=== PATIENT | female | born 1975 | race Caucasian/White ===

== ENCOUNTER 2016-05-10 12:23 | Emergency (ER) | payer BC ==
[~2016-05-10 12:23] MED LIST: HYDR-2666 PO; LISI10TA2 PO; RANI300T3 PO
[2016-05-10 13:30] VITALS: BP 128/77
[2016-05-10] MEDS ORDERED: HYDROCODONE/CHLORPHEN POLIS 5 ML SUS.ER.12H. PO STA (13:53)
[2016-05-10] MEDS ORDERED: DIAZEPAM 5 MG TABLET PO ONE (14:00)
[2016-05-10] MEDS ORDERED: IPRATRPIUM/ALBUTEROL 0.5/2.5MG 3 ML NEBU. NEB ONE (14:00)
[2016-05-10] MEDS ORDERED: PREDNISONE 20 MG TABLET PO ONE (14:00)
--- NOTE | 2016-05-10 14:54 | RAD ---
2 view CXR: Clinical indications: Cough for 3 months. Right-sided rib pain. Comparison: September 24, 2011 Findings: Small granuloma of the left midlung zone is stable. No acute lung infiltrate or pleural effusion or pulmonary edema or lung mass or pneumothorax is seen. The heart size is at the upper limits of normal and is stable. The pulmonary vasculature, mediastinum and both jordy are unremarkable. The osseous structures appear intact. Impression: No acute radiographic abnormality is seen.
[2016-05-10] MEDS ORDERED: PRED50TA PO (15:46)
[2016-05-10] MEDS ORDERED: PROAIR RESPICL90 MCG IH (15:46)
[2016-05-10] MEDS ORDERED: AMOX1TAB61 PO (15:46)
[2016-05-10] MEDS ORDERED: HYDR15SO4 PO (15:46)
[2016-05-10] MEDS ORDERED: BENZ100C PO (15:46)
[2016-05-10] MEDS ORDERED: DIAZ5TAB PO (15:46)
--- NOTE | 2016-05-10 15:47 | PHYS DOC ---
Past Medical History Past Medical History: Hypertension Additional Past Medical Histor: hemorrhoids, low back pain Past Surgical History: Cholecystectomy Additional Information: 2 ppd Alcohol Use: Occasionally Drug Use: None Adult General Chief Complaint Chief Complaint: RIB PAIN HPI HPI Patient is a 40 year old female with history of hypertension who presents today with a productive cough nasal congestion, for the last 2 months. Patient states she believes she has a sinus infection. Patient states she has been coughing so hard she believes she pulled a muscle on her right lower rib region. Patient denies any chest pain or shortness of breath. She states she is a smoker. Denies any fever. She has tried muscle relaxers and anti- inflammatories with no relief for her pain. Review of Systems Review of Systems Constitutional: Denies fever or chills [] Eyes: Denies change in visual acuity, redness, or eye pain [] HENT: nasal congestion Respiratory: cough and right lower rib pain Cardiovascular: see HPI GI: Denies abdominal pain, nausea, vomiting, bloody stools or diarrhea [] : Denies dysuria or hematuria [] Musculoskeletal: Denies back pain or joint pain [] Integument: Denies rash or skin lesions [] Neurologic: Denies headache, focal weakness or sensory changes [] Endocrine: Denies polyuria or polydipsia [] Current Medications Current Medications Current Medications Medications (Trade) Dose Ordered Sig/Crystal Start Time Stop Time Status Last Admin Dose Admin Albuterol/ Ipratropium (Duoneb) 3 ml 1X ONCE 05/10/16 14:00 05/10/16 14:01 DC 05/10/16 14:21 3 ML Chlorphenir/ Hydrocodone Polistirex (Tussionex) 5 ml 1X STAT 05/10/16 13:53 05/10/16 14:01 DC 05/10/16 14:19 5 ML Diazepam (Valium) 5 mg 1X ONCE 05/10/16 14:00 05/10/16 14:01 DC 05/10/16 14:19 5 MG Prednisone (Prednisone) 60 mg 1X ONCE 05/10/16 14:00 05/10/16 14:01 DC 05/10/16 14:19 60 MG Allergies Allergies Allergies Coded Allergies Type Severity Reaction Last Updated Verified No Known Drug Allergies 01/30/14 No Physical Exam Physical Exam Constitutional: Well developed, well nourished, no acute distress, non-toxic appearance. [] HENT: Normocephalic, atraumatic, bilateral external ears normal, oropharynx moist, no oral exudates, nose normal. [] Eyes: PERRLA, EOMI, conjunctiva normal, no discharge. [] Neck: Normal range of motion, no tenderness, supple, no stridor. [] Cardiovascular:Heart rate regular rhythm, no murmur [] Lungs & Thorax: Bilateral breath sounds clear to auscultation, mild tenderness on palpation of posterior lower rib approximately ribs 9 through 11. Abdomen: Bowel sounds normal, soft, no tenderness, no masses, no pulsatile masses. [] Skin: Warm, dry, no erythema, no rash. [] Back: No tenderness, no CVA tenderness. [] Extremities: No tenderness, no cyanosis, no clubbing, ROM intact, no edema. [] Neurologic: Alert and oriented X 3, normal motor function, normal sensory function, no focal deficits noted. [] Psychologic: Affect normal, judgement normal, mood normal. [] Current Patient Data Vital Signs Vital Signs Date Time Temp Pulse Resp B/P Pulse Ox O2 Delivery O2 Flow Rate FiO2 05/10/16 14:21 Room Air 05/10/16 14:19 20 05/10/16 13:30 98.4 78 95 98.4 EKG EKG [] Radiology/Procedures Radiology/Procedures [] Course & Med Decision Making Course & Med Decision Making Pertinent Labs and Imaging studies reviewed. (See chart for details) Patient is in the ED with muscle strain from coughing. She is also complaining of a cough for the last 2 months as well as a sinus infection. She has tried wetk-ldo-fdonswt medicines with no relief. Chest x-ray interpreted by radiologist as negative for any acute findings. She was discharged with instructions to consider smoking cessation. Discharged with albuterol inhaler, prednisone for 4 more days, she was given first dose in the Ed, Lortab, Tessalon Perles, and Augmentin for 10 days. Instructed to follow-up with her own doctor in 1-2 weeks, instructed to return to the ED if symptoms worsen., Dragon Disclaimer Dragon Disclaimer This electronic medical record was generated, in whole or in part, using a voice recognition dictation system. Departure Departure Impression: Primary Impression: Acute bronchitis Additional Impressions: Acute sinusitis Smoking addiction Disposition: 01 HOME, SELF-CARE Condition: STABLE Referrals: ARNOLDO LIANG MD (PCP) Follow-up with your own doctor in one week Patient Instructions: Acute Bronchitis, Sinusitis, Smoking Cessation Additional Instructions: You were seen for acute bronchitis. You also were seen for muscle strain, and a sinus infection. Ensure you complete your antibiotics. Consider smoking cessation. Use the the prescribed medications as ordered. Come back to the emergency room any time if symptoms worsen. Scripts Prednisone 50 Mg Tablet1 Tab PO DAILY #4 TAB Prov:ZACHARIAH POWELL APRN 05/10/16 Amoxicillin/Potassium Clav (Augmentin 875-125 Tablet)1 Each Tablet1 Tab PO BID # 20 TAB Prov:ZACHARIAH POWELL APRN 05/10/16 Albuterol Sulfate (Proair Respiclick)90 Mcg Aer.pow.ba1 Puff IH PRN Q6HRS PRN SHORTNESS OF BREATH #1 INHALER Prov:ZACHARIAH POWELL APRN 05/10/16 Diazepam (Valium)5 Mg Tablet5 Mg PO TID #10 TAB Prov:ZACHARIAH POWELL APRN 05/10/16 Benzonatate (Tessalon Perle)100 Mg Capsule1 Cap PO TID #30 CAP Prov:ZACHARIAH POWELL APRN 05/10/16 Hydrocodone Bit/Acetaminophen (Hydrocodone-Apap 7.5-325/15 Soln )15 Ml Cwylbhbt57 Ml PO PRN Q6HRS PRN PAIN #120 ML Ref 0 Prov:ZACHARIAH POWELL APRN 05/10/16 Problem Qualifiers Primary Impression: Acute bronchitis Bronchitis organism: unspecified organism Qualified Code: J20.9 - Acute bronchitis, unspecified Additional Impressions: Acute sinusitis Sinusitis location: maxillary Recurrence: non-recurrent Qualified Code: J01.00 - Acute maxillary sinusitis, unspecified ZACHARIAH POWELL APRN May 10, 2016 15:47
[2016-05-10] MEDS ORDERED: FLUC150T PO (15:56)
== END 2016-05-10 16:00 | disposition home or self-care (01) ==
LOC: ER 12:23
DX: J20.9 Acute bronchitis, unspecified (principal); J01.00 Acute maxillary sinusitis, unspecified; F17.200 Nicotine dependence, unspecified, uncomplicated; I10 Essential (primary) hypertension
CPT/HCPCS: 71020; 94250; 94640; 99284; J7512; J7620

== ENCOUNTER 2017-01-02 11:47 | Emergency (ER) | payer BC ==
[~2017-01-02] VITALS: Ht 165.1 cm; Wt 131.5 kg
[~2017-01-02 11:47] MED LIST changes: +AMOX1TAB61 PO; +BENZ100C PO; +DIAZ5TAB PO; +FLUC150T PO; -HYDR-2666 PO; +HYDR-2758 PO; +HYDR15SO4 PO; +PRED50TA PO; +PROAIR RESPICL90 MCG IH
[2017-01-02 12:16] VITALS: BP 145/87
[2017-01-02] MEDS ORDERED: ALBUTEROL SULFATE 2.5 MG/3 ML NEBU. NEB ONE (12:30)
[2017-01-02] MEDS ORDERED: predniSONE 10 MG TABLET PO ONE (12:30)
--- NOTE | 2017-01-02 12:35 | PHYS DOC ---
Past Medical History Past Medical History: Hypertension Additional Past Medical Histor: hemorrhoids, low back pain Past Surgical History: Cholecystectomy Alcohol Use: Occasionally Drug Use: None Adult General Chief Complaint Chief Complaint: COUGH HPI HPI Patient is a 41 year old female who presents with one-day history of moderate severity cough and wheezing no fever no productive cough. Positive tobacco use. Uses albuterol inhaler when necessary. No nausea vomiting diarrhea or dysuria frequency flank pain headache or chest pain. Review of Systems Review of Systems Constitutional: Denies fever or chills [] Eyes: Denies change in visual acuity, redness, or eye pain [] HENT: Denies nasal congestion or sore throat [] Respiratory: Denies cough or shortness of breath [] Cardiovascular: No additional information not addressed in HPI [] GI: Denies abdominal pain, nausea, vomiting, bloody stools or diarrhea [] : Denies dysuria or hematuria [] Musculoskeletal: Denies back pain or joint pain [] Integument: Denies rash or skin lesions [] Neurologic: Denies headache, focal weakness or sensory changes [] Endocrine: Denies polyuria or polydipsia [] Current Medications Current Medications Current Medications Medications (Trade) Dose Ordered Sig/Crystal Start Time Stop Time Status Last Admin Dose Admin Albuterol Sulfate (Ventolin Neb Soln) 2.5 mg 1X ONCE 01/02/17 12:30 01/02/17 12:31 DC 01/02/17 12:37 2.5 MG Prednisone (Prednisone) 50 mg 1X ONCE 01/02/17 12:30 01/02/17 12:31 DC 01/02/17 12:30 50 MG Allergies Allergies Allergies Coded Allergies Type Severity Reaction Last Updated Verified No Known Drug Allergies 01/30/14 No Physical Exam Physical Exam Constitutional: Well developed, well nourished, no acute distress, non-toxic appearance. [] HENT: Normocephalic, atraumatic, bilateral external ears normal, oropharynx moist, no oral exudates, nose normal. [] Eyes: PERRLA, EOMI, conjunctiva normal, no discharge. [] Neck: Normal range of motion, no tenderness, supple, no stridor. [] Cardiovascular:Heart rate regular rhythm, no murmur [] Lungs & Thorax: Bilateral breath sounds wheezing with cough to auscultation [] Abdomen: Bowel sounds normal, soft, no tenderness, no masses, no pulsatile masses. [] Skin: Warm, dry, no erythema, no rash. [] Back: No tenderness, no CVA tenderness. [] Extremities: No tenderness, no cyanosis, no clubbing, ROM intact, no edema. [] Neurologic: Alert and oriented X 3, normal motor function, normal sensory function, no focal deficits noted. [] Psychologic: Affect normal, judgement normal, mood normal. [] Current Patient Data Vital Signs Vital Signs Date Time Temp Pulse Resp B/P (MAP) Pulse Ox O2 Delivery O2 Flow Rate FiO2 01/02/17 12:39 97 Room Air 01/02/17 12:16 98.7 85 18 98.7 EKG EKG [] Radiology/Procedures Radiology/Procedures [] Course & Med Decision Making Course & Med Decision Making Pertinent Labs and Imaging studies reviewed. (See chart for details) Chest x-ray not indicated. Pulse ox okay plan to give by mouth steroids and nebulizer treatment in the ED. Counseled regarding smoking cessation. [] Dragon Disclaimer Dragon Disclaimer This electronic medical record was generated, in whole or in part, using a voice recognition dictation system. Departure Departure Impression: Primary Impression: Acute bronchospasm Additional Impression: Bronchitis with bronchospasm Disposition: 01 HOME, SELF-CARE Condition: IMPROVED Referrals: ARNOLDO LIANG MD (PCP) Patient Instructions: Acute Bronchitis, Osfn-hf-Hnir, Chronic Asthmatic Bronchitis, Smoking Cessation, Tips For Success Scripts Prednisone (PREDNISONE) 50 Mg Tablet 1 TAB PO DAILY for 4 Days, #4 TAB start tomorrow Prov: RAMONA QUIROZ MD 01/02/17 Albuterol Sulfate (VENTOLIN HFA INHALER) 18 Gm Hfa.aer.ad 2 PUFF INH Q4HRS for FOR ASTHMA, #1 INHALER 0 Refills Prov: RAMONA QUIROZ MD 01/02/17 Problem Qualifiers RAMONA QUIROZ MD Jan 02, 2017 12:35
[2017-01-02] MEDS ORDERED: VENTOLIN HFA18 GM INH (12:38)
[2017-01-02] MEDS ORDERED: PRED50TA PO (12:38)
== END 2017-01-02 12:54 | disposition home or self-care (01) ==
LOC: ER 11:47
DX: J20.9 Acute bronchitis, unspecified (principal); I10 Essential (primary) hypertension
CPT/HCPCS: 94250; 94640; 99283; J7512; J7613

== ENCOUNTER 2017-05-07 15:20 | Emergency (ER) | payer BC | END 2017-05-07 16:03 | disposition home or self-care (01) | LOC: ER 15:20 | DX: J01.90 Acute sinusitis, unspecified (principal); H66.93 Otitis media, unspecified, bilateral; J06.9 Acute upper respiratory infection, unspecified; I10 Essential (primary) hypertension | CPT/HCPCS: 99283 ==

== ENCOUNTER 2020-05-27 12:58 | Emergency (ER) | payer BC ==
[~2020-05-27] VITALS: Ht 162.6 cm; Wt 131.0 kg
[~2020-05-27 12:58] MED LIST changes: +AZIT250T PO; -HYDR-2758 PO; +HYDR-2761 PO; -HYDR15SO4 PO; +HYDR15SO6 PO; +VENTOLIN HFA18 GM INH
[2020-05-27 13:35] VITALS: BP 121/72
[2020-05-27 14:21] LABS: BILIRUBIN,URINE NEGATIVE (NEG); CLARITY,URINE CLEAR; COLOR,URINE YELLOW; NITRITE,URINE NEGATIVE (NEG); PROTEIN,URINE NEGATIVE (NEG-TRACE); UROBILINOGEN,URINE 0.2 mg/dL (0.2 mg/dL)
[2020-05-27 14:30] LABS: BACTERIA,URINE 0 /HPF (0-FEW); RBC,URINE 0 /HPF (0-2); WBC,URINE OCC /HPF (0-4)
[2020-05-27] MEDS ORDERED: methylPREDNISolone ACETATE 80 MG/ML VIAL. IM ONE (15:30)
[2020-05-27] MEDS ORDERED: KETOROLAC 60 MG/2 ML VIAL. IM ONE (15:30)
--- NOTE | 2020-05-27 15:38 | PHYS DOC ---
Past Medical History Past Medical History: Hypertension, Other Additional Past Medical Histor: hemorrhoids, low back pain; DDD Past Surgical History: Cholecystectomy Smoking Status: Current Every Day Smoker Alcohol Use: Occasionally Drug Use: None General Adult EDM: Chief Complaint: LOWER BACK PAIN OR INJURY HPI: HPI: Patient is a 44 year old female presents emergency department complaining of low back pain since 05/17/2020. Patient states that she injured her back getting into her car. Patient states she was seen at [facility] on the and was diagnosed with sciatica pain was given prescription for lidocaine patch and prednisone p.o. Patient states that she was unable to fill her lidocaine patch because her insurance will not cover it, and also has not filled her prednisone although it is ready today and she states she will go pick it up. Patient states she had to take one of her sons oxycodones at home and wishes to obtain a prescription for oxycodone for her back pain. Patient states she would like obtain an MRI. Patient denies any loss of bowel or bladder. Denies any swelling to her extremities. Denies any other physical complaints or physical symptoms. Review of Systems: Review of Systems: 14 body systems of review of systems have been reviewed. See HPI for pertinent positives and negative responses, otherwise all other systems are negative, nonpertinent or noncontributory. Heart Score: Risk Factors: Risk Factors: DM, Current or recent (<one month) smoker, HTN, HLP, family history of CAD, obesity. Risk Scores: Score 0 - 3: 2.5% MACE over next 6 weeks - Discharge Home Score 4 - 6: 20.3% MACE over next 6 weeks - Admit for Clinical Observation Score 7 - 10: 72.7% MACE over next 6 weeks - Early Invasive Strategies Allergies: Allergies: Allergies Coded Allergies Type Severity Reaction Last Updated Verified No Known Drug Allergies 01/30/14 No Physical Exam: PE: Constitutional: Well developed, well nourished, no acute distress, non-toxic appearance. HENT: Normocephalic, atraumatic, bilateral external ears normal, oropharynx moist, no oral exudates, nose normal. Eyes: PERRLA, EOMI, conjunctiva normal, no discharge. Neck: Normal range of motion, no tenderness, supple, no stridor. Cardiovascular:Heart rate regular rhythm, no murmur Lungs & Thorax: Bilateral breath sounds clear to auscultation Abdomen: Bowel sounds normal, soft, no tenderness, no masses, no pulsatile masses. Skin: Warm, dry, no erythema, no rash. Back: No CVA tenderness elicited, pain to palpation left lower lumbar area, no midline spine pain, pain radiates down buttocks. No loss of sensation of lower extremities, no edema or swelling of lower extremities, 2+ dorsalis pedis/posterior tibial pulses bilaterally. Extremities: No tenderness, no cyanosis, no clubbing, ROM intact, no edema. Neurologic: Alert and oriented X 3, normal motor function, normal sensory function, no focal deficits noted. Psychologic: Affect normal, judgement normal, mood normal. Current Patient Data: Labs: Laboratory Tests Test 05/27/20 13:35 05/27/20 14:05 Urine Collection Type Unknown Urine Color Yellow Urine Clarity Clear Urine pH 7.0 (<5.0-8.0) Urine Specific [place] 1.010 (1.000-1.030) Urine Protein Negative mg/dL (NEG-TRACE) Urine Glucose (UA) Negative mg/dL (NEG) Urine Ketones (Stick) Negative mg/dL (NEG) Urine Blood Negative (NEG) Urine Nitrite Negative (NEG) Urine Bilirubin Negative (NEG) Urine Urobilinogen Dipstick 0.2 mg/dL (0.2 mg/dL) Urine Leukocyte Esterase Negative (NEG) Urine RBC 0 /HPF (0-2) Urine WBC Occ /HPF (0-4) Urine Squamous Epithelial Cells Mod /LPF Urine Bacteria 0 /HPF (0-FEW) POC Urine HCG, Qualitative Hcg negative (Negative) Vital Signs: Vital Signs Date Time Temp Pulse Resp B/P (MAP) Pulse Ox O2 Delivery O2 Flow Rate FiO2 05/27/20 13:35 97.5 76 16 121/72 (88) 98 Room Air 97.5 EKG: EKG: [] Radiology/Procedures: Radiology/Procedures: [] Course & Med Decision Making: Course & Med Decision Making Pertinent Labs and Imaging studies reviewed. (See chart for details) 44-year-old female presents emergency department, vital signs reviewed, physical exam consistent with left sciatica pain. Will treat in the ER today with 80 mg Solu-Medrol, 60 mg Toradol IM. Patient gave verbal understanding of discharge home instructions, follow-up with primary care, return to ER question concerns, discharged home without incident. Patient states she will lemon picker her prescript ions prescribed by [facility] ER and take them as directed. Impression: [place]umb[place] Mancini Disclaimer: Maritamarycarmen Disclaimer: This electronic medical record was generated, in whole or in part, using a voice recognition dictation system. Departure Departure Impression: Primary Impression: Lumbago Qualified Codes: M54.42 - Lumbago with sciatica, left side Disposition: 01 DC HOME SELF CARE/HOMELESS Condition: IMPROVED Referrals: ARNOLDO LIANG MD (PCP) Patient Instructions: Back Pain, Adult Additional Instructions: Please lemon picker your prescriptions that were prescribed to you by [facility] and take them as directed, return to the ER for worsening symptoms or other concerns, follow-up with your primary care doctor so that he can order an outpatient MRI and reevaluation of your back. DEREK BRENNAN SOLE SEAMER May 27, 2020 15:38
== END 2020-05-27 16:00 | disposition home or self-care (01) ==
LOC: ER 12:58
DX: M54.42 Lumbago with sciatica, left side (principal); I10 Essential (primary) hypertension; F17.200 Nicotine dependence, unspecified, uncomplicated; Z90.49 Acquired absence of other specified parts of digestive tract
CPT/HCPCS: 81001; 81025; 96372; 99284; J1040; J1885

== ENCOUNTER → 2020-08-25 | Outpatient (CLI) | payer BC ==
[~2020-08-25] MED LIST changes: +IBUP800T19 PO; +LISI10TA16 PO; -LISI10TA2 PO; +LISI1TAB20 PO
== END ==
LOC: LAB 15:00
PROVIDERS: ATTEND Obstetrics & Gynecology
DX: Z01.812 Encounter for preprocedural laboratory examination (principal); Z20.822 Contact with and (suspected) exposure to COVID-19
CPT/HCPCS: U0003; U0005

== ENCOUNTER 2020-10-22 13:46 | Emergency (ER) | payer BC ==
[~2020-10-22] VITALS: Ht 162.6 cm; Wt 126.5 kg
[2020-10-22] MEDS ORDERED: IV NORMAL SALINE 1000ML BAG 1,000 ML IV ONE (14:00)
--- NOTE | 2020-10-22 14:02 | PHYS DOC ---
Past Medical History Past Medical History: Hypertension, Other Additional Past Medical Histor: hemorrhoids, low back pain; DDD Past Surgical History: Cholecystectomy Smoking Status: Current Every Day Smoker Alcohol Use: Occasionally Drug Use: None General Adult EDM: Chief Complaint: DIZZY/LIGHT HEADED HPI: HPI: Patient is a 45 year old female presents with a chief complaint of dizziness. Patient states she woke up with the dizziness on Tuesday. Dizziness comes and goes. Exacerbated with movement. Tuesday patient was evaluated at [facility] ER diagnosed with a sinus infection. Patient was placed on amoxicillin. Patient has no associated headache or fevers. Patient also states for the last few days she is also had decreased appetite. Patient had a telemedicine visit with her primary care physician yesterday who added Flonase. Patient states her primary care physician stated she might need to come to the hospital to get evaluated her symptoms continue. On exam patient is alert and oriented x4. She is in no acute distress. She arrived by private vehicle and ambulated into the ER with a normal steady gait. Review of Systems: Review of Systems: Review of systems: Constitutional symptoms- No fever, no chills. Eyes- No Discharge, No Visual Loss Respiratory symptoms- No shortness of breath, No wheezing, No Dyspnea on Exertion Cardiovascular Systems; Positive chest pain, No Palpitations, No syncope Gastrointestinal symptoms: NO abdominal pain, no nausea, no vomiting or diarrhea. Genitourinary symptoms: No dysuria. Musculoskeletal symptoms: No back pain No extremity pain. NEUROLOGICAL Symptoms: No headache, no generalized weakness; No focal Weakness positive dizziness Heart Score: C/O Chest Pain: N/A Risk Factors: Risk Factors: DM, Current or recent (<one month) smoker, HTN, HLP, family history of CAD, obesity. Risk Scores: Score 0 - 3: 2.5% MACE over next 6 weeks - Discharge Home Score 4 - 6: 20.3% MACE over next 6 weeks - Admit for Clinical Observation Score 7 - 10: 72.7% MACE over next 6 weeks - Early Invasive Strategies Allergies: Allergies: Allergies Coded Allergies Type Severity Reaction Last Updated Verified No Known Drug Allergies 08/28/20 No Physical Exam: PE: General: alert, no acute distress. Skin: warm, dry and intact. Head:: Normocephalic, atraumatic. Neck: Trachea midline. Eyes: EOMI, Normal conjunctiva, No drainage CARDIOVASCULAR: Regular rate and rhythm RESPIRATORY: No respiratory distress Back: Full range of motion. MUSCULOSKELETAL: Full range of motion of bilateral upper and lower extremities. GASTROINTESTINAL: Abdomen soft without rebound or guarding. NEUROLOGICAL: Alert and noted to person, place and time. No neurological deficits observed Psychiatric: Cooperative. Normal judgment EKG: EKG: Normal Sinus Rhythm Rate [address] elevation No ST depression No acute NH [] Performed at 1356 Radiology/Procedures: Radiology/Procedures: [] Course & Med Decision Making: Course & Med Decision Making Pertinent Labs and Imaging studies reviewed. (See chart for details) [] Treatment with IV fluids. Post treatment patient states her dizziness has improved. I reviewed with patient CT imaging and lab work. Patient advised her potassium slightly low. Patient states she normally takes supplements previous history of hypokalemia. Patient to be discharged home with instructions to follow-up with her primary care physician. Patient advised to continue all current medications. Dragon Disclaimer: Dragon Disclaimer: This electronic medical record was generated, in whole or in part, using a voice recognition dictation system. Departure Departure Impression: Primary Impression: Dizziness Additional Impression: Hypokalemia Disposition: 01 HOME / SELF CARE / HOMELESS Condition: STABLE Referrals: ARNOLDO LIANG MD (PCP) Patient Instructions: Dizziness, Hypokalemia Scripts Potassium Chloride (POTASSIUM CHLORIDE ) 20 Meq Tablet.er 20 MEQ PO DAILY for SUPPLEMENT, #14 TAB.SR Prov: FAREED GOINS DO 10/22/20 FAREED GOINS DO Oct 22, 2020 14:02
[2020-10-22 14:19] LABS: BASO # 0.1 x10^3/uL (0.0-0.2); BASO % 1 % (0-3); EOS # 0.1 x10^3/uL (0.0-0.7); EOS % 1 % (0-3); HEMOGLOBIN 15.1 g/dL (12.0-15.5); LYMPH # 1.7 x10^3/uL (1.0-4.8); LYMPH % 21 % (24-48); MEAN CORPUSCULAR HEMOGLOBIN 33 pg (25-35); MEAN CORPUSCULAR HGB CONC 35 g/dL (31-37); MEAN CORPUSCULAR VOLUME 93 fL (79-100); MONO # 0.7 x10^3/uL (0.0-1.1); MONO % 9 % (0-9); NEUT # 5.4 x10^3/uL (1.8-7.7); NEUT % 68 % (31-73); PLATELET COUNT 275 x10^3/uL (140-400); RED BLOOD COUNT 4.65 x10^6/uL (3.50-5.40); RED CELL DISTRIBUTION WIDTH 13.1 % (11.5-14.5)
[2020-10-22 14:33] LABS: CALCIUM 8.6 mg/dL (8.5-10.1); CREATININE 1.1 mg/dL (0.6-1.0); GFR 53.7; POTASSIUM 3.4 mmol/L (3.5-5.1)
[2020-10-22 14:38] LABS: ALBUMIN 3.8 g/dL (3.4-5.0); ALBUMIN/GLOBULIN RATIO 1.2 (1.0-1.7); TOTAL BILIRUBIN 0.7 mg/dL (0.2-1.0); TOTAL PROTEIN 6.9 g/dL (6.4-8.2)
--- NOTE | 2020-10-22 15:03 | RAD ---
CT HEAD INDICATION: Dizziness COMPARISON: 07/07/2011 Exposure: One or more of the following individualized dose reduction techniques were utilized for thi s examination: 1. Automated exposure control 2. Adjustment of the mA and/or kV according to patient size 3. Use of iterative reconstruction technique TECHNIQUE: 5 mm contiguous axial images were obtained from the skull base to the vertex in both bone and soft tissue algorithm. FINDINGS: No abnormal attenuation within the brain parenchyma. No evidence of acute intracranial hemorrhage. No extra-axial fluid collections. No mass effect or midline shift. Ventricular size is appropriate. Basal cisterns are patent. No fractures identified.Rock-white differentiation is preserved.Globes and orbits are within normal l imits. Paranasal sinuses and mastoid air cells are clear. IMPRESSION: No acute intracranial findings. Electronically signed by: Ted Joseph MD (10/22/2020 3:00 PM) [id number]
[2020-10-22] MEDS ORDERED: POTA20TA4 PO (15:27)
[2020-10-22 15:30] VITALS: BP 158/85
== END 2020-10-22 16:08 | disposition home or self-care (01) ==
LOC: ER 13:46
DX: R42 Dizziness and giddiness (principal); E87.6 Hypokalemia; I10 Essential (primary) hypertension; F17.200 Nicotine dependence, unspecified, uncomplicated
CPT/HCPCS: 36415; 70450; 80053; 85025; 96360; 99285; J7030